=== PATIENT | male | born 1960 | race Caucasian/White ===

== ENCOUNTER 2017-08-22 07:39 | Emergency (ER) | payer BC ==
[2017-08-22 07:49] VITALS: BMI 31.5
--- NOTE | 2017-08-22 07:53 | PDOC ---
History of Present Illness - History of Present Illness Initial Comments: 08/22/17 08:18 The patient is a 57 year old male with a history of HLD, MVP who presents for evaluation of chest pain and SOB. The patient reports a 2 day history of left sided chest discomfort at rest with worsening dyspnea on exertion prompting his presentation to the ED for further evaluation. He notes some associated nausea and states that he has never had similar symptoms in the past. He also notes a mild headache, but otherwise denies fevers, chills, vision changes, vomiting, abdominal pain, numbness, tingling, weakness, or changes with urination or bowel movements. <Gio Garcia - Last Filed: 08/22/17 09:44> <Matthew Solano - Last Filed: 08/22/17 14:13> - General Chief Complaint: Chest Pain Stated Complaint: NAUSEA/HEADACHE Time Seen by Provider: 08/22/17 07:51 Past History - Past Medical History Anemia: No Asthma: No Cancer: No Cardiac Disorders: Yes (MVP) CVA: No COPD: No CHF: No DVT: No Dementia: No Diabetes: No GI Disorders: Yes (COLON POLYPS,H/O GASTRIC ULCER,H.PYLORI,MILD DIVERTICULOSIS) Disorders: No HTN: No Hypercholesterolemia: Yes Liver Disease: No Seizures: No Thyroid Disease: No - Surgical History Abdominal Surgery: Yes (REPAIR RIGHT INGUINAL HERNIA,VENTRAL HERNIA REPAIR) Appendectomy: No Cardiac Surgery: No Cholecystectomy: No Lung Surgery: No Neurologic Surgery: No Orthopedic Surgery: No - Suicide/Smoking/Psychosocial Hx Smoking Status: No Smoking History: Never smoked Have you smoked in the past 12 months: No Number of Cigarettes Smoked Daily: 0 Information on smoking cessation initiated: No Hx Alcohol Use: Yes (SOCIALLY,WINE AT DINNER TIME) Drug/Substance Use Hx: No Substance Use Type: None Hx Substance Use Treatment: No <Gio Garcia - Last Filed: 08/22/17 09:44> <Matthew Solano - Last Filed: 08/22/17 14:13> - Past Medical History Allergies/Adverse Reactions: Allergies Allergy/AdvReac Type Severity Reaction Status Date / Time No Known Allergies Allergy Verified 08/22/17 07:45 Home Medications: Ambulatory Orders Cetirizine HCl [Zyrtec -] 1 tab PO DAILY 09/30/15 Ezetimibe/Simvastatin [Vytorin 10-20 mg Tablet] 1 each PO HS 12/15/14 Montelukast Na [Singulair -] 1 tab PO PRN PRN 12/15/14 Multivitamin with Iron [Daily Marlys with Iron] 1 tab PO DAILY 12/15/14 Review of Systems - Review of Systems Comments:: 08/22/17 08:21 Constitutional: No fevers, chills, fatigue, malaise HEENT: No Rhinorrhea, nasal congestion, visual changes Cardiovascular: Chest Discomfort. No syncope, palpitations, lightheadedness Respiratory: Dyspnea on Exertion. No Cough, Hemoptysis, Gastrointestinal: Nausea. No Abdominal pain, Vomiting, Constipation, Diarrhea, Melena Genitourinary: No Dysuria, Frequency, Urgency, Hesitancy, Hematuria, Flank pain Musculoskeletal: No Myalgia, arthralgia Skin: No rashes, itching, bruising, pallor Neurologic: Headache. No Dizziness, Numbness, Weakness, or Tingling Psychiatric: No Hallucinations. No SI or HI <Gio Garcia - Last Filed: 08/22/17 09:44> *Physical Exam - Vital Signs Last Vital Signs Temp Pulse Resp BP Pulse Ox 97.3 F L 62 18 160/91 100 08/22/17 07:46 08/22/17 07:46 08/22/17 07:46 08/22/17 07:46 08/22/17 07:46 - Physical Exam Comments: 08/22/17 08:21 General Appearance: Nourished. No Apparent Distress HEENT: EOMI, ANGELI. No Pharyngeal Erythema, Tonsillar Exudate, Tonsillar Erythema Neck: No Cervical Lymphadenopathy Respiratory/Chest: Lungs Clear, Normal Breath Sounds. No Crackles, Rales, Rhonchi, Wheezing Cardiovascular: Regular Rhythm, Regular Rate. No Murmur, Gallops, Rubs Gastrointestinal/Abdominal: Normal Bowel Sounds, Soft. No Guarding, Rebound, Tenderness Musculoskeletal: No CVA Tenderness Extremity: Normal Capillary Refill Integumentary: Normal Color, Dry, Warm Neurologic: Fully Oriented, Alert, Normal Mood/Affect, Normal Response, <Gio Garcia - Last Filed: 08/22/17 09:44> - Vital Signs Last Vital Signs Temp Pulse Resp BP Pulse Ox 97.3 F L 62 18 160/91 100 08/22/17 07:46 08/22/17 07:46 08/22/17 07:46 08/22/17 07:46 08/22/17 07:46 <Matthew Solano - Last Filed: 08/22/17 14:13> Heart Score/ECG Review #1 ECG reviewed & interpreted by me at: 08:22 General ECG Interpretation: Sinus Rhythm, Normal Rate, Normal Intervals, No acute ischemic changes <Gio Garcia - Last Filed: 08/22/17 09:44> ED Treatment Course - LABORATORY CBC & Chemistry Diagram: 08/22/17 08:25 08/22/17 08:25 <Gio Garcia - Last Filed: 08/22/17 09:44> - LABORATORY CBC & Chemistry Diagram: 08/22/17 08:25 08/22/17 08:25 - ADDITIONAL ORDERS Additional order review: Laboratory Results 08/22/17 08/22/17 12:50 08:25 Sodium 138 Potassium 4.1 Chloride 104 Carbon Dioxide 26 Anion Gap 8 BUN 16 Creatinine 1.0 Creat Clearance w eGFR > 60 Random Glucose 94 Calcium 9.2 Total Bilirubin 0.4 AST 14 L D ALT 30 D Alkaline Phosphatase 40 L Creatine Kinase 82 96 Troponin I < 0.02 < 0.02 Total Protein 7.7 Albumin 4.0 Lipase 157 08/22/17 08:25 RBC 5.25 MCV 88.6 MCHC 33.6 RDW 13.2 MPV 8.8 Neutrophils % 64.7 Lymphocytes % 26.3 D Monocytes % 7.2 Eosinophils % 0.9 Basophils % 0.9 - Medications Given in the ED: ED Medications Discontinued Medications Generic Name Dose Route Start Last Admin Trade Name Mehranq PRN Reason Stop Dose Admin Acetaminophen 1,000 mg 08/22/17 08:03 08/22/17 08:35 Ofirmev Injection - IVPB 08/22/17 08:04 1,000 mg ONCE ONE Administration Aspirin 324 mg 08/22/17 08:15 08/22/17 08:36 Asa - PO 08/22/17 08:16 324 mg ONCE ONE Administration Sodium Chloride 1,000 mls @ 1,000 mls/hr 08/22/17 08:03 08/22/17 08:35 Normal Saline - IV 08/22/17 09:02 1,000 mls/hr ASDIR STA Administration Ondansetron HCl 4 mg 08/22/17 08:03 08/22/17 08:36 Zofran Injection IVPUSH 08/22/17 08:04 Not Given ONCE ONE <Matthew Solano - Last Filed: 08/22/17 14:13> Medical Decision Making - Medical Decision Making 08/22/17 08:22 The patient is a 57 year old male with a history of HLD, MVP who presents for evaluation of chest pain and SOB. Differential includes but is not limited to: ACS, Arrhythmia, Pneumonia, Infectious, Metabolic derangement. Given the patient's history and physical exam, we will obtain a cbc, cmp, troponin, lipase , ekg, and chest plain film to evaluate further. The patient's outpatient regulator operator is Dr. Bhagat and we will touch base with Dr. Bhagat after labs have resulted. We will treat in the meantime with iv fluids, zofran, aspirin, and iv tylenol. We will continue to monitor and reassess while here in the ED. 08/22/17 09:44 CBC, cmp, troponin are unremarkable. Chest plain film is unremarkable. We discussed the case with the patient's regulator operator who stated that the patient should have a 2nd troponin and given his clinically history, as long as his troponin is normal, the patient can follow up in the office today or tomorrow. <RadhaGio - Last Filed: 08/22/17 09:44> *DC/Admit/Observation/Transfer <Gio Garcia - Last Filed: 08/22/17 09:44> - Discharge Dispostion Decision to Admit order: No <Matthew Solano - Last Filed: 08/22/17 14:13> Diagnosis at time of Disposition: Chest pain Qualifiers: Chest pain type: unspecified Qualified Code(s): R07.9 - Chest pain, unspecified - Discharge Dispostion Disposition: HOME Condition at time of disposition: Improved - Referrals Referrals: Brandon Bhagat MD [Staff Physician] - - Patient Instructions Printed Discharge Instructions: DI for Atypical Chest Pain Additional Instructions: Return to the emergency department immediately with ANY new, persistent or worsening symptoms. You MUST call and follow up with Dr. Bhagat tomorrow for further evaluation of your symptoms. Results were discussed with you. Please make sure your doctor reviews the results of your emergency evaluation. Print Language: NAURUAN
[2017-08-22] MEDS ORDERED: ACETAMINOPHEN 1000 MG/100 ML VIAL (NON FORMULARY) IVPB ONE (08:03)
[2017-08-22] MEDS ORDERED: SODIUM CHLORIDE 1,000 ML IV STA (08:03)
[2017-08-22] MEDS ORDERED: ONDANSETRON 4 MG/2 ML VIAL IVPUSH ONE (08:03)
[2017-08-22] MEDS ORDERED: ASPIRIN 81 MG CHEWABLE TABLETS PO ONE (08:15)
--- NOTE | 2017-08-22 08:15 | PDOC ---
Attending Attestation - Resident Resident Name: Gio Garcia - ED Attending Attestation I have performed the following: I have examined & evaluated the patient, The case was reviewed & discussed with the resident, I agree w/resident's findings & plan, Exceptions are as noted - HPI HPI: 08/22/17 08:07 57y M hx of hl, mvp, presents with complaint of headache,nonradiating left sided cp, and henry x 2 days. The chest pain is left sided, seems worse with certain movements and is more of a discomfort. The pt endorses some associated henry over the past 2 days. Denies associated cough, hemoptysis, leg swelling, fever/chills, back pain, neck pain. Pt follows up with dr pinedo for his MVP, last stress was 17 years ago (due to arrythmia in postop for hernia surgery). denies any cough, abd pain, f/c, numbness/tingling/waekness pts also complains of mild intermittent frontal headache since yesterday without associated vision changes, numbness/tingling/waekness, neck pain, recent head injury. pt does note a change in his routine, has been working more , sleeping less (~5.5 hrs a night). GENERAL: The patient is awake, alert, and fully oriented, Nontoxic - in no acute distress. HEAD: Normocephalic, atraumatic. EYES: extraocular movements intact, sclera anicteric, conjunctiva clear. ENT: Normal voice, Moist mucous membranes. NECK: Normal range of motion, supple LUNGS: Breath sounds equal, clear to auscultation bilaterally. No wheezes, no rhonchi, no rales. HEART: Regular rate and rhythm, normal S1 and S2 without murmur, rub or gallop. ABDOMEN: Soft, nontender, normoactive bowel sounds. No guarding, no rebound. No CVA tenderness EXTREMITIES: Normal range of motion, no edema. No clubbing or cyanosis. No cords, erythema, or tenderness. NEUROLOGICAL: No facial assymetry, Normal speech, moving all 4 extremities spontaneously and symmetrically PSYCH: Normal mood, normal affect. SKIN: Warm, Dry, normal turgor, ddx includes acs, pancreatitis, ekg, cxr, fluids, tylenol, zofran, asa suspect h/a may be secondary to decreased sleep, not consistent with dangoerus headaches will dw dr. pinedo 08/22/17 11:28 trop neg x [address] pinedo - robert pantoja trop x 2 and will arrange for outpatient stress - Physicial Exam PE: 08/22/17 14:14 se ever e - Medical Decision Making 08/22/17 14:13 rp neg x 2 will dc with pmd fu repeat ekg unremarkble retur nprecautions were discussed I discussed the physical exam findings, ancillary test results and final diagnoses with the patient. I answered all of the patient's questions. The patient was satisfied with the care received and felt comfortable with the discharge plan and treatment plan. The patient will call their primary care physician within 24 hours to arrange follow-up and will return to the Emergency Department with any new, persistent or worsening symptoms. Heart Score/ECG Review - ECG Impressions Comment:: 08/22/17 08:15 Twelve-lead EKG was performed and reviewed by me. There is normal sinus rhythm with a normal rate. Rate of 61 The axis is normal. The intervals are normal. There is normal R wave progression There are no ST or T wave abnormalities.
[2017-08-22] MEDS ORDERED: ACETAMINOPHEN INJECTION 100 ML IVPB ONE (08:24)
[2017-08-22] MEDS ORDERED: ONDANSETRON 4 MG/2 ML VIAL ONE (08:24)
[2017-08-22] MEDS ORDERED: ASPIRIN 81 MG CHEWABLE TABLETS ONE (08:26)
[2017-08-22 08:46] LABS: BASO % 0.9 % (0-2.0); EOS % 0.9 % (0-4.5); HEMATOCRIT 46.5 % (35.4-49); HEMOGLOBIN 15.6 GM/dL (11.7-16.9); LYMPH % 26.3 % (8-40); MCH 29.8 pg (25.7-33.7); MCHC 33.6 g/dl (32.0-35.9); MEAN CELL VOLUME 88.6 fl (80-96); MEAN PLT VOLUME 8.8 fl (7.5-11.1); MONO % 7.2 % (3.8-10.2); NEUT % 64.7 % (42.8-82.8); PLATELET COUNT 251 K/MM3 (134-434); RBC 5.25 M/mm3 (4.00-5.60); RDW 13.2 % (11.9-15.9); WHITE BLOOD COUNT 6.3 K/mm3 (4.0-10.0)
[2017-08-22 08:53] LABS: ANION GAP 8 (8-16); BILIRUBIN,TOTAL 0.4 mg/dL (0.2-1.0); BLOOD UREA NITROGEN 16 mg/dL (7-18); CALCIUM 9.2 mg/dL (8.5-10.1); CHLORIDE 104 mmol/L (98-107); CO2 26 mmol/L (21-32); GLUCOSE,RANDOM 94 mg/dL (74-106); LIPASE 157 U/L (73-393); POTASSIUM 4.1 mmol/L (3.5-5.1); SGOT/AST 14 U/L (15-37); SGPT/ALT 30 U/L (12-78); SODIUM 138 mmol/L (136-145); TOT PROT 7.7 g/dl (6.4-8.2)
[2017-08-22 08:57] LABS: ALK PHOS 40 U/L (45-117)
--- NOTE | 2017-08-22 11:26 | EKG ---
Test Reason : Blood Pressure : / mmHG Vent. Rate : 061 BPM Atrial Rate : 061 BPM P-R Int : 154 ms QRS Dur : 098 ms QT Int : 462 ms P-R-T Axes : 039 000 034 degrees QTc Int : 465 ms POOR DATA QUALITY, INTERPRETATION MAY BE ADVERSELY AFFECTED SINUS RHYTHM WITH FUSION COMPLEXES OTHERWISE NORMAL ECG WHEN COMPARED WITH ECG OF 09-JAN-2011 09:23, FUSION COMPLEXES ARE NOW PRESENT QT HAS LENGTHENED Confirmed by BLUE TREVIÑO MD ([id number]) on 08/22/2017 11:26:14 AM Referred By: Confirmed By:BLUE TREVIÑO MD
--- NOTE | 2017-08-22 11:42 | CON.CARD ---
Consult Consult Specialty:: Cardiology Referred by:: ER Reason for Consultation:: Cardiac evaluation - History of Present Illness Chief Complaint: Chest pain History of Present Illness: Patient is a 57-year-old gentleman with history of hyperlipidemia, aortic valve disease with aortic valve regurgitation and mitral valve regurgitation who presents with left sided chest pain radiating to back and some low back pain vs. flank pain. He was last seen in the office on 04-10-17. He denies shortness of breath or palpitations. He denies paroxysmal nocturnal dyspnea or orthopnea. He denies fever or chills. He denies headache or lightheadedness and he denies nausea, vomiting, diarrhea or abdominal pain. He is tolerating his medications. Troponin is negative and ECG is unremarkable. Last stress testing was years ago. - History Source History Provided By: Patient, Medical Record Limitations to Obtaining History: No Limitations - Past Medical History Cardio/Vascular: Yes: Aortic Insufficiency, Hyperlipdemia, Mitral Insufficiency - Alcohol/Substance Use Hx Alcohol Use: Yes (SOCIALLY,WINE AT DINNER TIME) - Smoking History Smoking history: Never smoked Have you smoked in the past 12 months: No Aproximately how many cigarettes per day: 0 Home Medications - Allergies Allergies/Adverse Reactions: Allergies Allergy/AdvReac Type Severity Reaction Status Date / Time No Known Allergies Allergy Verified 08/22/17 07:45 - Home Medications Home Medications: Ambulatory Orders Cetirizine HCl [Zyrtec -] 1 tab PO DAILY 12/15/14 Ezetimibe/Simvastatin [Vytorin 10-20 mg Tablet] 1 each PO HS 12/15/14 Montelukast Na [Singulair -] 1 tab PO PRN PRN 12/15/14 Multivitamin with Iron [Daily Marlys with Iron] 1 tab PO DAILY 12/15/14 Review of Systems - Review of Systems Constitutional: denies: Chills, Fever Cardiovascular: reports: Chest Pain. denies: Palpitations, Shortness of Breath Respiratory: denies: Cough, Hemoptysis, Orthopnea, PND, SOB, SOB on Exertion Gastrointestinal: denies: Abdominal Pain, Constipation, Diarrhea, Melena, Nausea , Rectal Bleeding, Vomiting Genitourinary: denies: Dysuria, Hematuria Musculoskeletal: denies: Back Pain, Joint Pain Neurological: denies: Dizziness, Headache, Seizure, Syncope Vital Signs: Vital Signs Temperature 97.3 F L 08/22/17 07:46 Pulse Rate 62 08/22/17 07:46 Respiratory Rate 18 08/22/17 07:46 Blood Pressure 160/91 08/22/17 07:46 O2 Sat by Pulse Oximetry (%) 100 08/22/17 07:46 Constitutional: Yes: Well Nourished Eyes: Yes: PERRL HENT: Yes: Atraumatic Neck: Yes: Supple Respiratory: Yes: Regular, CTA Bilaterally Gastrointestinal: Yes: Normal Bowel Sounds, Soft. No: Tenderness Cardiovascular: Yes: Regular Rate and Rhythm JVD: No Carotid Bruit: No PMI: Non-Displaced Heart Sounds: Yes: S1, S2. No: Gallop Murmur: No: Systolic Murmur, Diastolic Murmur Edema: No - Other Data Labs, Other Data: CBC, BMP 08/22/17 08:25 08/22/17 08:25 Troponin, BNP 08/22/17 08:25 Troponin I < 0.02 Laboratory Results - last 24 hr 08/22/17 08/22/17 08/22/17 08:25 08:25 12:50 WBC 6.3 D RBC 5.25 Hgb 15.6 Hct 46.5 MCV 88.6 MCH 29.8 MCHC 33.6 RDW 13.2 Plt Count 251 D MPV 8.8 Absolute Neuts (auto) 4.1 Neutrophils % 64.7 Lymphocytes % 26.3 D Monocytes % 7.2 Eosinophils % 0.9 Basophils % 0.9 Nucleated RBC % 0 Sodium 138 Potassium 4.1 Chloride 104 Carbon Dioxide 26 Anion Gap 8 BUN 16 Creatinine 1.0 Creat Clearance w eGFR > 60 Random Glucose 94 Calcium 9.2 Total Bilirubin 0.4 AST 14 L D ALT 30 D Alkaline Phosphatase 40 L Creatine Kinase 96 82 Troponin I < 0.02 < 0.02 Total Protein 7.7 Albumin 4.0 Lipase 157 Normal sinus rhythm Problem List - Problems (1) Hypercholesterolemia Code(s): E78.00 - PURE HYPERCHOLESTEROLEMIA, UNSPECIFIED (2) HTN (hypertension) Code(s): I10 - ESSENTIAL (PRIMARY) HYPERTENSION (3) Chest pain Code(s): R07.9 - CHEST PAIN, UNSPECIFIED Qualifiers: Chest pain type: unspecified Qualified Code(s): R07.9 - Chest pain, unspecified Assessment/Plan 1. Chest pain syndrome rule out CAD 2. Hypercholesterolemia 3. HTN 4. Mitral valve and aortic valve disease PLAN: 1. Serial cardiac enzyme. If 2 sets are negative, he may be discharged home and further cardiac work up including nuclear MPI can be done as outpatient 2. Add ASA 81 mg once a day 3. Add Metoprolol ER 25 mg once a day 4. Continue statin (Vytorin or equivalent) Further plans are to follow Brandon Bhagat MD
[2017-08-22] MEDS ORDERED: metoPROLOL SUCCINATE 25 MG TAB.SR.24H (FP) PO SCH (11:45)
[2017-08-22 14:25] VITALS: BP 143/78; PULSE 76; TEMP 98.2
--- NOTE | 2017-08-22 16:09 | EKG ---
Test Reason : Blood Pressure : / mmHG Vent. Rate : 049 BPM Atrial Rate : 049 BPM P-R Int : 170 ms QRS Dur : 096 ms QT Int : 452 ms P-R-T Axes : 030 -08 031 degrees QTc Int : 408 ms SINUS BRADYCARDIA INCOMPLETE RIGHT BUNDLE BRANCH BLOCK MINIMAL VOLTAGE CRITERIA FOR LVH, MAY BE NORMAL VARIANT BORDERLINE ECG WHEN COMPARED WITH ECG OF 22-AUG-2017 07:53, FUSION COMPLEXES ARE NO LONGER PRESENT QT HAS SHORTENED Confirmed by HUDSON MOMIN, BLUE ([id number]) on 08/22/2017 4:09:11 PM Referred By: Confirmed By:BLUE TREVIÑO MD
[2017-08-23] MEDS ORDERED: ASPIRIN COATED 81 MG TABLET.EC PO SCH (10:00)
== END 2017-08-22 14:30 | disposition home or self-care (01) ==
LOC: JER 07:39
DX: R07.9 Chest pain, unspecified (principal); E78.00 Pure hypercholesterolemia, unspecified; I08.0 Rheumatic disorders of both mitral and aortic valves; Z87.19 Personal history of other diseases of the digestive system
CPT/HCPCS: 36415; 71045-TC-FY; 80053; 82550; 83690; 84484; 85025; 93005; 93010; 99283-25; J0131; J7030